=== PATIENT | male | born 1970 | race African-American/Black ===

== ENCOUNTER 2022-07-04 14:44 | Inpatient (IN) | payer OTHER ==
[2022-07-04 15:45] VITALS: BMI 20.2
[2022-07-04] MEDS ORDERED: NICOTINE 10 MG CARTRIDGE (INHALER) IH PRN (18:20)
[2022-07-04] MEDS ORDERED: ACETAMINOPHEN 325 MG TABLET (FP) PO PRN ×2 (18:20)
[2022-07-04] MEDS ORDERED: MAGNESIUM HYDROX 2400MG/30ML ORAL SUSPENSION 30 ML CUP PO PRN (18:20)
[2022-07-04] MEDS ORDERED: LOPERAMIDE HCL 2 MG CAPSULE PO PRN (18:20)
[2022-07-04] MEDS ORDERED: ONDANSETRON *ODT* 4 MG TABLET SL PRN (18:20)
[2022-07-04] MEDS ORDERED: NALOXONE HCL (KLOXXADO) 8 MG SPRAY NS PRN (18:20)
[2022-07-04] MEDS ORDERED: MAGNESIUM CITRATE 300 ML BOTTLE PO PRN (18:20)
[2022-07-04] MEDS ORDERED: BENZOCAINE/MENTHOL (CHLORASEPTIC ) LOZENGE MM PRN (18:20)
[2022-07-04] MEDS ORDERED: IBUPROFEN 400 MG TABLET (FP) PO PRN (18:20)
[2022-07-04] MEDS ORDERED: MAG HYDROX/AL HYDROX/SIMETH 30 ML UNIT-DOSE CUP PO PRN (18:20)
[2022-07-04] MEDS ORDERED: BISMUTH SUBSALICYLATE 524 MG/30 ML PO PRN (18:20)
[2022-07-04] MEDS ORDERED: DICYCLOMINE HCL 10 MG CAPSULE PO PRN (18:20)
[2022-07-04] MEDS ORDERED: ALBUTEROL SO4 HFA INHALER IH PRN (18:54)
[2022-07-04] MEDS ORDERED: ALBUTEROL SO4 2.5/IPRATROPIUM 0.5 INH SOL 3 ML VIAL.NEB. NEB ONE (18:54)
[2022-07-04] MEDS ORDERED: guaiFENesin 200 MG/10 ML 10 ML UNIT-DOSE CUPS PO PRN (19:26)
[2022-07-04] MEDS ORDERED: ALBUTEROL SO4 0.083% IH SOL 2.5 MG/3 ML VIAL.NEB. NEB PRN (19:28)
[2022-07-04] MEDS: PRENATAL VITAMINS W/ FOLIC ACID TABLET (FP) PO SCH (19:56)
[2022-07-04] MEDS: NICOTINE 14 MG/24 HOURS TOPICAL PATCH TD SCH (19:57)
[2022-07-04] MEDS: levETIRAcetam 500 MG TABLET (FP) PO SCH (23:01)
[2022-07-04] MEDS: THIAMINE HCL 100 MG TABLET (FP) PO SCH (23:02)
[2022-07-04] MEDS: MELATONIN 5 MG TABLETS PO SCH (23:02)
[2022-07-04] MEDS: hydrOXYzine PAMOATE 25 MG CAPSULE (FP) PO PRN (23:54)
[2022-07-04] MEDS: IBUPROFEN 600 MG TABLET (FP) PO PRN (23:54)
[2022-07-04] MEDS: METHOCARBAMOL 500 MG TABLET PO PRN (23:55)
[2022-07-05] MEDS ORDERED: chlordiazePOXIDE HCL 25 MG CAPSULE PO PRN (09:52)
[2022-07-05] MEDS: IBUPROFEN 600 MG TABLET (FP) PO PRN (10:37)
[2022-07-05] MEDS: PRENATAL VITAMINS W/ FOLIC ACID TABLET (FP) PO SCH (10:37)
[2022-07-05] MEDS: levETIRAcetam 500 MG TABLET (FP) PO SCH ×2 (10:37→23:19)
[2022-07-05] MEDS: chlordiazePOXIDE HCL 25 MG CAPSULE PO SCH ×3 (10:38→23:19)
[2022-07-05] MEDS: NICOTINE 14 MG/24 HOURS TOPICAL PATCH TD SCH (10:41)
[2022-07-05 11:09] LABS: HEMATOCRIT 40.9 % (35.4-49); HEMOGLOBIN 13.8 GM/dL (11.7-16.9); MCH 30.6 pg (25.7-33.7); MCHC 33.7 g/dl (32.0-35.9); MEAN CELL VOLUME 90.9 fl (80-96); MEAN PLT VOLUME 7.4 fl (7.5-11.1); PLATELET COUNT 284 10^3/uL (134-434); RDW 14.6 % (11.9-15.9)
[2022-07-05 11:18] LABS: ALBUMIN 3.4 g/dl (3.4-5.0); BLOOD UREA NITROGEN 11.8 mg/dL (7-18); CALCIUM 9.2 mg/dL (8.5-10.1)
[2022-07-05 11:22] LABS: CREATININE 1.1 mg/dL (0.55-1.3)
[2022-07-05 11:23] LABS: BILIRUBIN,TOTAL 0.6 mg/dL (0.2-1); TOT PROT 6.9 g/dl (6.4-8.2)
[2022-07-05] MEDS: traZODone HCL 50 MG TABLET (FP) PO SCH (23:18)
[2022-07-05] MEDS: MELATONIN 5 MG TABLETS PO SCH (23:18)
[2022-07-05] MEDS: THIAMINE HCL 100 MG TABLET (FP) PO SCH (23:18)
[2022-07-05] MEDS: QUEtiapine FUMARATE 50 MG TABLET PO SCH (23:19)
[2022-07-06] MEDS: chlordiazePOXIDE HCL 25 MG CAPSULE PO SCH ×4 (05:18→22:31)
[2022-07-06] MEDS: hydrOXYzine PAMOATE 25 MG CAPSULE (FP) PO PRN (05:20)
[2022-07-06] MEDS: levETIRAcetam 500 MG TABLET (FP) PO SCH ×2 (10:50→22:31)
[2022-07-06] MEDS: PRENATAL VITAMINS W/ FOLIC ACID TABLET (FP) PO SCH (10:50)
[2022-07-06] MEDS: NICOTINE 14 MG/24 HOURS TOPICAL PATCH TD SCH (10:51)
[2022-07-06] MEDS: IBUPROFEN 600 MG TABLET (FP) PO PRN (21:23)
[2022-07-06] MEDS: QUEtiapine FUMARATE 50 MG TABLET PO SCH (22:30)
[2022-07-06] MEDS: THIAMINE HCL 100 MG TABLET (FP) PO SCH (22:30)
[2022-07-06] MEDS: traZODone HCL 50 MG TABLET (FP) PO SCH (22:31)
[2022-07-06] MEDS: MELATONIN 5 MG TABLETS PO SCH (23:29)
[2022-07-07] MEDS: chlordiazePOXIDE HCL 25 MG CAPSULE PO SCH ×3 (06:47→18:33)
[2022-07-07] MEDS: levETIRAcetam 500 MG TABLET (FP) PO SCH ×2 (11:46→23:12)
[2022-07-07] MEDS: METHOCARBAMOL 500 MG TABLET PO PRN ×2 (11:46→17:53)
[2022-07-07] MEDS: hydrOXYzine PAMOATE 25 MG CAPSULE (FP) PO PRN (11:46)
[2022-07-07] MEDS: NICOTINE 14 MG/24 HOURS TOPICAL PATCH TD SCH (11:47)
[2022-07-07] MEDS: PRENATAL VITAMINS W/ FOLIC ACID TABLET (FP) PO SCH (11:47)
[2022-07-07] MEDS: IBUPROFEN 600 MG TABLET (FP) PO PRN (17:52)
[2022-07-07] MEDS ORDERED: diazePAM 5 MG TABLET PO PRN (19:00)
[2022-07-07] MEDS: traZODone HCL 50 MG TABLET (FP) PO SCH (23:12)
[2022-07-07] MEDS: QUEtiapine FUMARATE 50 MG TABLET PO SCH (23:12)
[2022-07-07] MEDS: MELATONIN 5 MG TABLETS PO SCH (23:12)
[2022-07-07] MEDS: THIAMINE HCL 100 MG TABLET (FP) PO SCH (23:12)
[2022-07-07] MEDS: diazePAM 5 MG TABLET PO SCH (23:13)
[2022-07-08] MEDS ORDERED: chlordiazePOXIDE HCL 10 MG CAPSULE PO PRN
[2022-07-08] MEDS ORDERED: chlordiazePOXIDE HCL 10 MG CAPSULE PO SCH (05:00)
[2022-07-08] MEDS: diazePAM 5 MG TABLET PO SCH ×2 (05:21→11:06)
[2022-07-08 09:06] VITALS: BP 152/96; PULSE 77; RESP 16; TEMP 98
[2022-07-08] MEDS: PRENATAL VITAMINS W/ FOLIC ACID TABLET (FP) PO SCH (11:06)
[2022-07-08] MEDS: levETIRAcetam 500 MG TABLET (FP) PO SCH (11:06)
[2022-07-08] MEDS: NICOTINE 14 MG/24 HOURS TOPICAL PATCH TD SCH (11:06)
[2022-07-09] MEDS ORDERED: chlordiazePOXIDE HCL 10 MG CAPSULE PO SCH (05:00)
[2022-07-09] MEDS ORDERED: diazePAM 5 MG TABLET PO SCH (06:00)
[2022-07-10] MEDS ORDERED: chlordiazePOXIDE HCL 10 MG CAPSULE PO ONE (05:00)
[2022-07-10] MEDS ORDERED: diazePAM 5 MG TABLET PO SCH (06:00)
[2022-07-11] MEDS ORDERED: diazePAM 5 MG TABLET PO ONE (06:00)
== END 2022-07-08 08:45 | disposition home or self-care (01) | DRG 897 ==
LOC: YASAS 14:44 → UNDOADMIN 19:07 → Y3N 19:07
PROVIDERS: ADMIT Allergy & Immunology; ATTEND Surgery
PROC: HZ2ZZZZ Detoxification Services for Substance Abuse Treatment (ICD-10-PCS; principal; 2022-07-04)
DX: F10.230 Alcohol dependence with withdrawal, uncomplicated (principal); F14.20 Cocaine dependence, uncomplicated; F12.20 Cannabis dependence, uncomplicated; F17.210 Nicotine dependence, cigarettes, uncomplicated; F31.9 Bipolar disorder, unspecified; F20.9 Schizophrenia, unspecified; G40.909 Epilepsy, unspecified, not intractable, without status epilepticus; I10 Essential (primary) hypertension; J45.909 Unspecified asthma, uncomplicated; R74.8 Abnormal levels of other serum enzymes; Z87.820 Personal history of traumatic brain injury
CPT/HCPCS: 36415; 80053; 85027; 86780; 94640; C9803-CS; U0003; U0005